=== PATIENT | male | born 1970 | race Caucasian/White ===

== ENCOUNTER 2017-02-09 16:37 | Emergency (ER) | payer SELFPAY ==
[2017-02-09 16:44] VITALS: BP 108/70; PULSE 92; RESP 15; TEMP 98.6; O2SAT 97
--- NOTE | 2017-02-09 17:56 | PD ---
Physical Exam Time Seen by Provider: 17:54 Narrative 46-year-old male with history of DVT and currently taking warfarin with complaint of right lower leg swelling and erythema for the last couple days. Was hospitalized for Lovenox therapy 2 weeks ago and left before the therapy was completed. Has IVC filter. Has history of PE also. Patient seen in triage. Vital signs reviewed. Patient awaiting bed placement. Data Data Last Documented VS Vital Signs Date Time Temp Pulse Resp B/P (MAP) Pulse Ox O2 Delivery O2 Flow Rate FiO2 02/09/17 16:44 98.6 92 15 108/70 (83) 97 MDM Supervised Visit with ANKUR: Dotty Rai Feb 09, 2017 17:56
[2017-02-09] MEDS ORDERED: CLON0.3T PO (18:21)
[2017-02-09] MEDS ORDERED: COUM7.5T PO (18:21)
[2017-02-09] MEDS ORDERED: ONDANSETRON HCL 4 MG/2 ML VIAL IV PUSH ONE (18:30)
[2017-02-09] MEDS ORDERED: MORPHINE SULFATE 4 MG/ML INJ IV PUSH ONE (18:30)
[2017-02-09 18:38] VITALS: O2SAT 97
[2017-02-09 19:02] LABS: AUTOMATED NEUTROPHIL # 5.6 TH/MM3 (1.8-7.7); BASOPHIL % 0.4 % (0.0-2.0); EOSINOPHIL # 0.2 TH/MM3 (0-0.4); EOSINOPHIL % 2.8 % (0.0-4.0); HEMATOCRIT 35.5 % (39.0-51.0); HEMO FLAGS DIFF FINAL; LYMPH % 18.3 % (9.0-44.0); LYMPHOCYTE # 1.5 TH/MM3 (1.0-4.8); MEAN CELL VOLUME 102.6 FL (80.0-100.0); MEAN CORPUSCULAR HEMOGLOBIN 34.4 PG (27.0-34.0); MEAN CORPUSCULAR HGB CONC 33.6 % (32.0-36.0); MONO % 9.8 % (0.0-8.0); NEUT % 68.7 % (16.0-70.0); PLATELET COUNT 324 TH/MM3 (150-450); RED BLOOD COUNT 3.46 MIL/MM3 (4.50-5.90); RED CELL DISTRIBUTION WIDTH 14.3 % (11.6-17.2); WHITE BLOOD COUNT 8.1 TH/MM3 (4.0-11.0)
[2017-02-09 19:05] LABS: APTT (PATIENT) 50.2 SEC (24.3-30.1); INTERNATIONAL NORMALIZED RATIO 4.1 RATIO; PROTHROMBIN TIME - PATIENT 48.2 SEC (9.8-11.6)
[2017-02-09 19:07] LABS: ANION GAP 9 MEQ/L (5-15); AST (GOT) 18 U/L (15-37); BICARBONATE 24.1 MEQ/L (21.0-32.0); BLOOD UREA NITROGEN 9 MG/DL (7-18); CHLORIDE 105 MEQ/L (98-107); GLOMERULAR FILTRATION RATE 97 ML/MIN (>89); POTASSIUM 3.9 MEQ/L (3.5-5.1); SODIUM (NA) 138 MEQ/L (136-145)
--- NOTE | 2017-02-09 19:07 | RADRPT ---
EXAM DATE/TIME: 02/09/2017 18:51 [facility] COMPARISON: No previous studies available for comparison. INDICATIONS : Assess for IVC filter MEDICAL HISTORY : None. SURGICAL HISTORY : IVC filter ENCOUNTER: Initial ACUITY: 1 day PAIN SCORE: 0/10 LOCATION: Abdomen FINDINGS: A single erect view of the abdomen demonstrates the lower lungs to be clear. No evidence of free int raperitoneal gas. The visualized bowel loops are unremarkable. A retrievable inferior vena cava filter is identified. CONCLUSION: Retrievable inferior vena cava filter identified. No acute process. Ethan Chapman MD on February 09, 2017 at 19:04 Board Certified Radiologist. This report was verified electronically.
[2017-02-09 19:08] LABS: ALT (GPT) 13 U/L (12-78)
--- NOTE | 2017-02-09 19:08 | RADRPT ---
EXAM DATE/TIME: 02/09/2017 18:52 [facility] COMPARISON: No previous studies available for comparison. INDICATIONS : Right elbow pain, fell hit elbow MEDICAL HISTORY : None. SURGICAL HISTORY : IVC filter ENCOUNTER: Initial ACUITY: 2 weeks PAIN SCORE: 9/10 LOCATION: Right Elbow FINDINGS: Two view examination of the right elbow demonstrates marked soft tissue swelling overlying the olecra non process. The elbow joint is intact without evidence of fracture, dislocation or significant arthr opathy. There is no evidence of joint effusion. CONCLUSION: Significant soft tissue swelling overlying the olecranon process. Otherwise intact right elbow without evidence of fracture, dislocation or significant arthropathy. Ethan Chapman MD on February 09, 2017 at 19:05 Board Certified Radiologist. This report was verified electronically.
[2017-02-09 19:10] LABS: ALKALINE PHOSPHATASE 74 U/L (45-117); TOTAL BILIRUBIN ADULT 0.2 MG/DL (0.2-1.0)
--- NOTE | 2017-02-09 19:13 | PD ---
HPI Chief Complaint: Edema Time Seen by Provider: 18:10 Travel History International Travel<30 days: No Contact w/Intl Traveler<30days: No Traveled to known affect area: No History of Present Illness HPI 46 room male with history of DVTs and PEs, who was recently admitted to [facility] in [place]. The patient states that he signed out AGAINST MEDICAL ADVICE because he had to go to work. The patient states that his INR at time of signing out AMA was 2.7. He states they're bridging him with Lovenox at the time. He presents today with worsening pain and swelling of his right lower extremity. He denies any fevers, chills. He is unsure whether his INR is therapeutic or not. He does report that he was told that it should be above 3. PFSH Past Medical History Hx Anticoagulant Therapy: Yes Deep Vein Thrombosis: Yes (r leg) Hypertension: Yes Seizures: Yes (supposed to take meds, doesn't ) Tetanus Vaccination: < 5 Years Social History Alcohol Use: Yes Tobacco Use: Yes (pack a day) Substance Use: No Allergies-Medications (Allergen,Severity, Reaction): Coded Allergies: No Known Allergies (Unverified , 02/09/17) Reported Meds & Prescriptions Reported Meds & Active Scripts Active Reported Clonidine (Clonidine HCl) 0.3 Mg Tab 0.3 Mg PO BID Coumadin (Warfarin) 7.5 Mg Tab 7.5 Mg PO DAILY Review of Systems Except as stated in HPI: all other systems reviewed are Neg General / Constitutional: No: Fever, Chills HENT: No: Headaches, Lightheadedness Cardiovascular: No: Chest Pain or Discomfort, Palpitations Respiratory: Positive: Shortness of Breath Gastrointestinal: No: Nausea, Vomiting, Abdominal Pain Musculoskeletal: Positive: Edema (I lateral lower extremity), Pain Neurologic: No: Weakness, Dizziness, Syncope Physical Exam Narrative GENERAL: Well-nourished, well-developed patient, in no acute respiratory distress. SKIN: Focused skin assessment warm/dry. HEAD: Normocephalic last atraumatic. EYES: No scleral icterus. No injection or drainage. NECK: Supple, trachea midline. CARDIOVASCULAR: Regular rate and rhythm without murmurs, gallops, or rubs. RESPIRATORY: Breath sounds equal bilaterally. No accessory muscle use. GASTROINTESTINAL: Abdomen soft, non-tender, nondistended. MUSCULOSKELETAL: No cyanosis. Patient's bilateral lower extremities are edematous. He has no abrasion to the anterior dennis of his right lower extremity. There is no evidence of cellulitis. NEUROLOGICAL: Awake and alert. Cranial nerves II through XII intact. Motor and sensory grossly within normal limits. Five out of 5 muscle strength in all muscle groups. Normal speech. Data Data Last Documented VS Vital Signs Date Time Temp Pulse Resp B/P (MAP) Pulse Ox O2 Delivery O2 Flow Rate FiO2 02/09/17 18:38 97 Room Air 02/09/17 16:44 98.6 92 15 Orders Orders Complete Blood Count With Diff (02/09/17 18:20) Comprehensive Metabolic Panel (02/09/17 18:20) Prothrombin Time / Inr (Pt) (02/09/17 18:20) Act Partial Throm Time (Ptt) (02/09/17 18:20) Iv Access Insert/Monitor (02/09/17 18:20) Ecg Monitoring (02/09/17 18:20) Oximetry (02/09/17 18:20) Abdomen, Upright Only (02/09/17 18:20) Elbow, Limited (Ap&Lat) (02/09/17 18:20) Morphine Inj (Morphine Inj) (02/09/17 18:30) Ondansetron Inj (Zofran Inj) (02/09/17 18:30) Labs Laboratory Tests Test 02/09/17 18:36 White Blood Count 8.1 TH/MM3 Red Blood Count 3.46 MIL/MM3 Hemoglobin 11.9 GM/DL Hematocrit 35.5 % Mean Corpuscular Volume 102.6 FL Mean Corpuscular Hemoglobin 34.4 PG Mean Corpuscular Hemoglobin Concent 33.6 % Red Cell Distribution Width 14.3 % Platelet Count 324 TH/MM3 Mean Platelet Volume 7.7 FL Neutrophils (%) (Auto) 68.7 % Lymphocytes (%) (Auto) 18.3 % Monocytes (%) (Auto) 9.8 % Eosinophils (%) (Auto) 2.8 % Basophils (%) (Auto) 0.4 % Neutrophils # (Auto) 5.6 TH/MM3 Lymphocytes # (Auto) 1.5 TH/MM3 Monocytes # (Auto) 0.8 TH/MM3 Eosinophils # (Auto) 0.2 TH/MM3 Basophils # (Auto) 0.0 TH/MM3 CBC Comment DIFF FINAL Differential Comment Prothrombin Time 48.2 SEC Prothromb Time International Ratio 4.1 RATIO Activated Partial Thromboplast Time 50.2 SEC Blood Urea Nitrogen 9 MG/DL Creatinine 0.85 MG/DL Random Glucose 91 MG/DL Albumin 2.8 GM/DL Calcium Level 8.4 MG/DL Aspartate Amino Transf (AST/SGOT) 18 U/L Alanine Aminotransferase (ALT/SGPT) 13 U/L Sodium Level 138 MEQ/L Potassium Level 3.9 MEQ/L Chloride Level 105 MEQ/L Carbon Dioxide Level 24.1 MEQ/L Anion Gap 9 MEQ/L Estimat Glomerular Filtration Rate 97 ML/MIN MDM Medical Decision Making Medical Screen Exam Complete: Yes Emergency Medical Condition: Yes Differential Diagnosis Subtherapeutic INR versus cellulitis versus metabolic derangement Narrative Course 46-year-old male who presents with lower extremity pain. Patient signed out AMA from [facility]. We're obtaining the records. Labs are pending at this time. He has been signed out to Dr. Morillo who will follow up on the labs and the paperwork from [facility] and make the appropriate disposition. Diagnosis Primary Impression: Pain of right lower extremity Additional Impressions: DVT, bilateral lower limbs Pulmonary embolism Mkie Hendricks MD Feb 09, 2017 19:13
--- NOTE | 2017-02-09 19:16 | PD ---
Data Data Last Documented VS Vital Signs Date Time Temp Pulse Resp B/P (MAP) Pulse Ox O2 Delivery O2 Flow Rate FiO2 02/09/17 18:38 97 Room Air 02/09/17 16:44 98.6 92 15 Orders Orders Complete Blood Count With Diff (02/09/17 18:20) Comprehensive Metabolic Panel (02/09/17 18:20) Prothrombin Time / Inr (Pt) (02/09/17 18:20) Act Partial Throm Time (Ptt) (02/09/17 18:20) Iv Access Insert/Monitor (02/09/17 18:20) Ecg Monitoring (02/09/17 18:20) Oximetry (02/09/17 18:20) Abdomen, Upright Only (02/09/17 18:20) Elbow, Limited (Ap&Lat) (02/09/17 18:20) Morphine Inj (Morphine Inj) (02/09/17 18:30) Ondansetron Inj (Zofran Inj) (02/09/17 18:30) Ed Discharge Order (02/09/17 19:32) Labs Laboratory Tests Test 02/09/17 18:36 White Blood Count 8.1 TH/MM3 Red Blood Count 3.46 MIL/MM3 Hemoglobin 11.9 GM/DL Hematocrit 35.5 % Mean Corpuscular Volume 102.6 FL Mean Corpuscular Hemoglobin 34.4 PG Mean Corpuscular Hemoglobin Concent 33.6 % Red Cell Distribution Width 14.3 % Platelet Count 324 TH/MM3 Mean Platelet Volume 7.7 FL Neutrophils (%) (Auto) 68.7 % Lymphocytes (%) (Auto) 18.3 % Monocytes (%) (Auto) 9.8 % Eosinophils (%) (Auto) 2.8 % Basophils (%) (Auto) 0.4 % Neutrophils # (Auto) 5.6 TH/MM3 Lymphocytes # (Auto) 1.5 TH/MM3 Monocytes # (Auto) 0.8 TH/MM3 Eosinophils # (Auto) 0.2 TH/MM3 Basophils # (Auto) 0.0 TH/MM3 CBC Comment DIFF FINAL Differential Comment Prothrombin Time 48.2 SEC Prothromb Time International Ratio 4.1 RATIO Activated Partial Thromboplast Time 50.2 SEC Blood Urea Nitrogen 9 MG/DL Creatinine 0.85 MG/DL Random Glucose 91 MG/DL Total Protein 7.0 GM/DL Albumin 2.8 GM/DL Calcium Level 8.4 MG/DL Alkaline Phosphatase 74 U/L Aspartate Amino Transf (AST/SGOT) 18 U/L Alanine Aminotransferase (ALT/SGPT) 13 U/L Total Bilirubin 0.2 MG/DL Sodium Level 138 MEQ/L Potassium Level 3.9 MEQ/L Chloride Level 105 MEQ/L Carbon Dioxide Level 24.1 MEQ/L Anion Gap 9 MEQ/L Estimat Glomerular Filtration Rate 97 ML/MIN [facility] Medical Record Reviewed: Yes Supervised Visit with ANKUR: No Narrative Course During the course of the patients emergency department visit, the patients history, examination, and differential diagnosis were reviewed with the patient. The patient had IV access obtained and blood work sent for analysis. The patient was initially seen by Dr. Hendricks. The patient's case was checked out to me at the conclusion of his shift. 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 The patient presents with increased pain in his leg. The patient reports that he left AMA from the hospital in [place]. He reports that he does not have a physician in [place], however he plan to follow-up with the [facility]. 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 He then came to [place] this weekend to "relax". Records from [facility] for requested by Dr. Hendricks. He requested that I review the patient's laboratory studies and disposition the patient. The patient was initially provided morphine for pain, Zofran for nausea. The patients laboratory studies were reviewed and remarkable for a white count of 8.1, hemoglobin 11.9, platelets 324 with 9.8 monos, CMP is unremarkable, PTT 48.2, INR 4.1, PTT 50.2. Radiology studies were reviewed and remarkable for an elbow x-ray that reveals soft tissue swelling, no acute bony abnormality. Abdominal x-ray reveals an IVC filter in place. The patient is instructed regarding his laboratory findings. The patient is instructed to hold his Coumadin today and tomorrow and have his INR rechecked 2 days. The patient was given a prescription for pain medication. The patient is instructed to call in the morning for a follow-up appointment with the health Department as previously planned. The patient is stable for discharge without any signs of bleeding associated with his elevated INR. The patient is resting comfortably and feels better, is alert and in no distress. The patients results and examination findings were discussed with the patient. The repeat examination is unremarkable and benign. The history, exam, diagnostic testing, and current condition do not suggest any significant pathology to warrant further testing, continued ED treatment, admission, or surgical evaluation at this point. The vital signs have been stable. The patient does not have uncontrollable pain, intractable vomiting, or other significant symptoms. The patient's condition is stable and appropriate for discharge. The patient will pursue further outpatient evaluation with a primary care physician or other designated or consulting physician as indicated in the discharge instructions. The patient expressed understanding and was agreeable with this plan. Diagnosis Primary Impression: Pain of right lower extremity Additional Impressions: DVT, bilateral lower limbs Pulmonary embolism Elevated INR Referrals: Primary Care Physician 1 day Patient Instructions: Elevated INR (ED), General Instructions, Leg Pain (ED) Additional Instruction: The patient is instructed to hold his Coumadin for 2 days and have his INR rechecked at that time. The patient is instructed to follow-up with the physician that is monitoring his INR for further adjustments of his Coumadin dose. Med/Other Pt SpecificInfo: Prescription(s) given Scripts Hydrocodone-Acetaminophen (Lortab) 5-325 Mg Tab 1 TAB PO Q6H Y for PAIN, #12 TAB 0 Refills Prov: Emi Morillo MD 02/09/17 Disposition: 01 DISCHARGE HOME Condition: Stable Emi Morillo MD Feb 09, 2017 19:16
[2017-02-09] MEDS ORDERED: HYDR-3533 PO (19:22)
[2017-02-09 19:44] VITALS: BP 115/66; PULSE 87; RESP 18; O2SAT 98
== END 2017-02-09 20:39 | disposition home or self-care (01) ==
LOC: NEPE 16:37
DX: I82.403 Acute embolism and thrombosis of unspecified deep veins of lower extremity, bilateral (principal); I26.99 Other pulmonary embolism without acute cor pulmonale; F17.200 Nicotine dependence, unspecified, uncomplicated; M25.521 Pain in right elbow; Z79.01 Long term (current) use of anticoagulants
CPT/HCPCS: 73070; 74000; 80053; 85025; 85610; 85730; 96374; 96375; 99284; J2270; J2405